=== PATIENT | female | born 1955 | race Caucasian/White ===

== ENCOUNTER 2017-04-24 15:08 | Emergency (ER) | payer OTHER ==
[~2017-04-24 15:08] MED LIST: BACT800T5 PO; CEPH500C3 PO; Z.0.NO CURRENT MEDS
[2017-04-24 15:13] VITALS: BP 209/100; PULSE 77; RESP 24; TEMP 97.8; O2SAT 100
--- NOTE | 2017-04-24 15:40 | PD ---
HPI Chief Complaint: Dizziness Time Seen by Provider: 15:30 Travel History International Travel<30 days: No Contact w/Intl Traveler<30days: No Traveled to known affect area: No History of Present Illness HPI The patient was seen and examined in the presence of the nurse. This patient complains of vertigo. She has a room spinning sensation. Duration is one hour. She is nauseous. She turns her head in either direction it's worse so she stares straight ahead as she talks to me. No headache. No alleviating factors. Symptoms exacerbated by movement. Severity is moderate PFSH Past Medical History Heart Rhythm Problems: No Cardiac Catheterization: No Cardiovascular Problems: Yes (MVP) High Cholesterol: No (unknown - labs coming up with her physician) Congestive Heart Failure: No Diabetes: No Diminished Hearing: No Hypertension: No Dilation and Curettage (D&C): Yes Tubal Ligation: Yes Past Surgical History Cholecystectomy: Yes Coronary Artery Bypass Graft: No Social History Alcohol Use: No Tobacco Use: No Substance Use: No Allergies-Medications (Allergen,Severity, Reaction): Coded Allergies: acetaminophen (Unverified Adverse Reaction, Severe, VOMITING, 04/24/17) hydrocodone (Unverified Adverse Reaction, Severe, NAUSEA/ VOMITING, ) Reported Meds & Prescriptions Reported Meds & Active Scripts Active Bactrim DS (Sulfamethoxazole-Trimethoprim DS) 1 Tab Tab 1 Tab PO BID 7 Days Keflex (Cephalexin Monohydrate) 500 Mg Cap 500 Mg PO Q8 Reported No Current Meds (Miscellaneous Medication) Misc Review of Systems General / Constitutional: No: Fever Eyes: No: Visual changes HENT: Positive: Vertigo, No: Headaches Cardiovascular: No: Chest Pain or Discomfort Respiratory: No: Shortness of Breath Gastrointestinal: Positive: Nausea, Vomiting, No: Abdominal Pain Genitourinary: No: Dysuria Musculoskeletal: No: Pain Skin: No Rash Neurologic: No: Weakness Psychiatric: No: Depression Endocrine: No: Polydipsia Hematologic/Lymphatic: No: Easy Bruising Physical Exam Narrative GENERAL: Well-nourished, well-developed patient in no apparent distress. SKIN: Focused skin assessment reveals no rash and nodules. Skin is Warm and dry. HEAD: Atraumatic. Normocephalic. EYES: Pupils equal and round. No scleral icterus. No injection or drainage. ENT: No nasal bleeding or discharge. Mucous membranes pink and moist. NECK: Trachea midline. No JVD. CARDIOVASCULAR: Regular rate and rhythm. No murmur appreciated. RESPIRATORY: No accessory muscle use. Clear to auscultation. Breath sounds equal bilaterally. GASTROINTESTINAL: Abdomen soft, non-tender, nondistended. Hepatic and splenic margins not palpable. MUSCULOSKELETAL: No obvious deformities. No clubbing. No cyanosis. No edema. NEUROLOGICAL: Awake and alert. No obvious cranial nerve deficits. Motor grossly within normal limits. Normal speech. PSYCHIATRIC: Appropriate mood and affect; insight and judgment normal. Data Data Last Documented VS Vital Signs Date Time Temp Pulse Resp B/P (MAP) Pulse Ox O2 Delivery O2 Flow Rate FiO2 04/24/17 15:44 74 16 163/84 (110) 98 Room Air 04/24/17 15:13 97.8 Orders Orders Hydroxyzine Pamoate (Vistaril) (04/24/17 15:45) Ondansetron Odt (Zofran Odt) (04/24/17 15:45) [facility] Medical Decision Making Medical Screen Exam Complete: Yes Emergency Medical Condition: Yes Medical Record Reviewed: Yes Differential Diagnosis Positional vertigo, labyrinthitis, CVA Narrative Course I have reviewed the patient's electronic medical record. Patient is neurologically intact. There are no objective findings on exam. Her presentation is consistent with positional vertigo. I gave her dose of meclizine and Zofran and will reassess her Initial blood pressure was quite high, on recheck it is 160 systolic On recheck she does feel improved but still having vertigo issues Scripts for Zofran and meclizine written. Primary care follow-up recommended Diagnosis Primary Impression: Positional vertigo Qualified Codes: H81.10 - Benign paroxysmal vertigo, unspecified ear Additional Instructions: The patient was advised to follow up with their physician and return if they worsen. The patient was warned about potential sedation for the medications they will receive on prescription. Med/Other Pt SpecificInfo: Prescription(s) given Scripts Ondansetron Odt (Zofran Odt) 4 Mg Tab 4 MG SL Q6HR Y for Nausea/Vomiting, #20 TAB 0 Refills Prov: Александр Ann MD 04/24/17 Meclizine (Meclizine) 25 Mg Tab 25 MG PO TID Y for VERTIGO, #21 TAB 0 Refills Prov: Александр Ann MD 04/24/17 Disposition: 01 DISCHARGE HOME Condition: Stable Александр Ann MD Apr 24, 2017 15:40
[2017-04-24 15:44] VITALS: BP 163/84; PULSE 74; RESP 16; O2SAT 98
[2017-04-24] MEDS ORDERED: hydrOXYzine PAMOATE 25 MG CAP PO ONE (15:45)
[2017-04-24] MEDS ORDERED: ONDANSETRON ODT 4 MG TAB PO ONE (15:45)
[2017-04-24] MEDS ORDERED: ZOFR4TAB3 SL (16:41)
[2017-04-24] MEDS ORDERED: MECL-62 PO (16:41)
[2017-04-24 16:55] VITALS: BP 151/77; TEMP 97.8
== END 2017-04-24 16:55 | disposition home or self-care (01) ==
LOC: NEPD 15:08
DX: H81.10 Benign paroxysmal vertigo, unspecified ear (principal)
CPT/HCPCS: 99284; Q0177